=== PATIENT | female | born 1985 | race Caucasian/White ===

== ENCOUNTER 2021-07-20 16:30 | Inpatient (IN) | payer OTHER ==
[~2021-07-20] VITALS: Ht 154.9 cm; Wt 81.6 kg
[2021-07-20] MEDS ORDERED: ONDANSETRON 4 MG/2 ML VIAL IV ONE (17:45)
[2021-07-20] MEDS ORDERED: IV NORMAL SALINE 1000 ML BAG IV ONE (17:45)
[2021-07-20] MEDS ORDERED: ONDANSETRON 4 MG/2 ML VIAL ONE (18:22)
[2021-07-20 18:34] LABS: HEMATOCRIT 41.6 % (31.2-41.9); MEAN CORPUSCULAR HEMOGLOBIN 29.5 uug (24.7-32.8); MEAN CORPUSCULAR VOLUME 87.8 fL (75.5-95.3); PLATELET COUNT (AUTO) 416 K/uL (179-408)
[2021-07-20 18:40] LABS: CARBON DIOXIDE 31 mmol/L (21-32); CHLORIDE 101 mmol/L (98-107); CREATININE 0.8 mg/dL (0.6-1.3); GLUCOSE 119 mg/dL (74-106); POTASSIUM 4.5 mmol/L (3.5-5.1); UREA NITROGEN, BLOOD 9 mg/dL (7-18)
[2021-07-20] MEDS ORDERED: IV NORMAL SALINE 250 ML IV ONE (18:49)
[2021-07-20] MEDS ORDERED: IOHEXOL 300MG/ML 100 ML INFUS..BTL ONE (18:49)
[2021-07-20] MEDS ORDERED: SWABABLE VALVE TRANSFER SET EA MC ONE (18:49)
[2021-07-20 18:53] LABS: ALANINE AMINOTRANSFERASE 62 U/L (14-59); ALKALINE PHOSPHATASE 162 U/L (50-136); ASPARTATE AMINOTRANSFERASE 61 U/L (15-37); BILIRUBIN,DIRECT 0.2 mg/dL (0.0-0.2); BILIRUBIN,TOTAL 0.9 mg/dL (0.2-1.0); LIPASE 102 U/L (73-393); TOTAL PROTEIN, SERUM 9.2 g/dL (6.4-8.2)
--- NOTE | 2021-07-20 19:15 | NUR ---
PT back to ER from [place].
[2021-07-20] MEDS ORDERED: PIPERACILLIN SODIUM/TAZOBACTAM 3.375 G in IV DEXTROSE 5% 50 ML IV ONE (20:15)
[2021-07-20] MEDS ORDERED: PIPERACILLIN/TAZOBACTAM/D5W 50 ML IV ONE (20:23)
[2021-07-20] MEDS ORDERED: HYDROMORPHONE 1 MG/1 ML DISP.SYRIN IV ONE ×2 (20:30→23:15)
--- NOTE | 2021-07-20 20:46 | NUR ---
Dr. Swenson speaking with Dr. Bernard Max of [facility], [place]
[2021-07-20] MEDS ORDERED: HYDROMORPHONE 1 MG/1 ML DISP.SYRIN ONE ×2 (20:57→23:21)
[2021-07-20] MEDS ORDERED: IV D5W-0.45% NS +20 KCL 1,000 ML IV ONE ×2 (22:00→22:03)
[2021-07-21] MEDS ORDERED: HYDROMORPHONE 1 MG/1 ML DISP.SYRIN IV ONE ×5 (02:45→22:45)
[2021-07-21] MEDS ORDERED: ONDANSETRON 4 MG/2 ML VIAL IV ONE ×4 (02:45→18:00)
[2021-07-21] MEDS ORDERED: PIPERACILLIN SODIUM/TAZOBACTAM 3.375 G in IV DEXTROSE 5% 50 ML IV ONE (02:45)
[2021-07-21] MEDS ORDERED: PIPERACILLIN/TAZOBACTAM/D5W 50 ML IV ONE (02:52)
[2021-07-21] MEDS ORDERED: HYDROMORPHONE 1 MG/1 ML DISP.SYRIN ONE ×5 (02:52→22:40)
[2021-07-21] MEDS ORDERED: ONDANSETRON 4 MG/2 ML VIAL ONE ×4 (02:52→18:13)
--- NOTE | 2021-07-21 11:11 | NUR ---
pt ambulated to bathroom with so assisstance.
--- NOTE | 2021-07-21 15:00 | NUR ---
pt's boy friend at bedside. he says that he talked to the surgeon and the surgeon said that there will be no surgery today. pt erquesting something to eat. er md at bedside
--- NOTE | 2021-07-21 19:10 | NUR ---
Recieved michelle report from [facility]. Pt is in holding pattern waiting for a room assigment at [place]. Nothing is pending of pt. VSS, PE WNL pt only complaining of moderate to severe pain and is being medicated with dilaudid 1mg. Pt has good color and appearance, no s/sx of distress present.
--- NOTE | 2021-07-21 19:50 | NUR ---
119/78, 78bpm NSR, 100% RA, 16rpm, 6/10 pain
--- NOTE | 2021-07-21 23:10 | NUR ---
112/71, 77bpm, 94% RA, 16rpm, 8/10 pain. Pt's pain treated with 1mg dilaudid per EDMD.
--- NOTE | 2021-07-21 23:47 | NUR ---
talking to [facility] now. Transfer center said they are completely full at all [facility] locations but are trying to move stuff around and make room for the pt. Transfer rep said that most likely it will be after 9am tomorrow morning after dcing some pts in the morning they should have a bed ready for her by then.
--- NOTE | 2021-07-22 03:28 | NUR ---
Pt complaining of 8/10 abd pain. EDMD informed,
[2021-07-22] MEDS ORDERED: HYDROMORPHONE 1 MG/1 ML DISP.SYRIN IV ONE ×2 (03:30→11:45)
[2021-07-22] MEDS ORDERED: IV D5W-0.45% NS 1000 ML BAG IV ONE (03:30)
[2021-07-22] MEDS ORDERED: ONDANSETRON 4 MG/2 ML VIAL IV ONE ×3 (03:30→11:45)
[2021-07-22] MEDS ORDERED: HYDROMORPHONE 1 MG/1 ML DISP.SYRIN ONE ×2 (04:17→11:37)
[2021-07-22] MEDS ORDERED: PIPERACILLIN/TAZOBACTAM/D5W 50 ML IV ONE (04:18)
--- NOTE | 2021-07-22 07:12 | NUR ---
Checked in on pt. Pt was sleeping soundly with audible snoring. IV fluids flowing at approx 100ml/hr per EDMD. Pt states 7/10 pain but refused pain meds and said she can hold off for the time being. I told her the morning RN will be arriving soon and if she feels the need to medicate for pain to just notify the AMRN. She agreed. Pt asked if there is anything I can get for her before I leave, she said no thank you and was greatful for the care she recieved through out the night. Pt updated on [facility] and was told that the transfer center said she is at the top of the list to be assigned a room first before anyone else and that hopefully between 9am and noon she should be placed and transfered.
--- NOTE | 2021-07-22 07:30 | NUR ---
Software Test Developer assumes care: Patient is AOx4, calm & breathing easily, afebrile, for transfer to [facility], pending available nurse & bed@ [facility], NAD, denies nausea or vomiting or diarrhea.
--- NOTE | 2021-07-22 08:36 | NUR ---
primary surgeon- Dr. Vinod Butler [phone]
[2021-07-22 08:51] LABS: HEMATOCRIT 35.7 % (31.2-41.9); MEAN CORPUSCULAR HEMOGLOBIN 29.3 uug (24.7-32.8); PLATELET COUNT (AUTO) 385 K/uL (179-408)
[2021-07-22] MEDS ORDERED: MORPHINE SULFATE 4 MG/1 ML DISP.SYRIN IV ONE (09:00)
[2021-07-22] MEDS ORDERED: IV NORMAL SALINE 250 ML IV ONE (09:07)
[2021-07-22] MEDS ORDERED: SWABABLE VALVE TRANSFER SET EA MC ONE (09:07)
[2021-07-22] MEDS ORDERED: IOHEXOL 300MG/ML 100 ML INFUS..BTL ONE (09:07)
[2021-07-22] MEDS ORDERED: MORPHINE SULFATE 4 MG/1 ML DISP.SYRIN ONE (09:09)
[2021-07-22] MEDS ORDERED: ONDANSETRON 4 MG/2 ML VIAL ONE ×3 (09:10→14:54)
[2021-07-22 09:16] LABS: CREATININE 0.9 mg/dL (0.6-1.3); POTASSIUM 4.6 mmol/L (3.5-5.1)
[2021-07-22 09:21] LABS: BILIRUBIN,DIRECT 0.2 mg/dL (0.0-0.2); BILIRUBIN,TOTAL 1.1 mg/dL (0.2-1.0); TOTAL PROTEIN, SERUM 8.1 g/dL (6.4-8.2)
--- NOTE | 2021-07-22 10:32 | NUR ---
1026am: Updated labs,imaging and notes were faxed to , pending confirmation receipt from hospital's fax machine.
--- NOTE | 2021-07-22 11:26 | NUR ---
I faxed documents 2x but "ERROR/failed" message received. [facility] staff Lisbeth gave alternative fax number. Faxed documents again for third time.
--- NOTE | 2021-07-22 11:38 | NUR ---
VERBAL ORDER FROM DR MARY BIGGSUDID 1MG AND ZOFRAN 4MG IV FOR ABD PAIN
[2021-07-22] MEDS ORDERED: MORPHINE SULFATE 2 MG/1 ML DISP.SYRIN ONE (14:54)
[2021-07-22] MEDS: ONDANSETRON 4 MG/2 ML VIAL IV PRN (14:55)
[2021-07-22] MEDS: MORPHINE SULFATE 2 MG/1 ML DISP.SYRIN IV PRN ×2 (14:57→19:13)
--- NOTE | 2021-07-22 16:29 | NUR ---
Patient and spouse are updated about : plan of care. Patient and spouse are agreeable with the admission to our hospital. NPO maintained.
[2021-07-22] MEDS ORDERED: PIPERACILLIN SODIUM/TAZOBACTAM 4.5 G in IV DEXTROSE 5% 50 ML IV SCH (17:00)
--- NOTE | 2021-07-22 17:23 | NUR ---
CD copies of all her imaging were sent to 3rd floor medical-surgical floor. Room 325 was given, pending accepting [email or web address] time.
[2021-07-22] MEDS: PIPERACILLIN SODIUM/TAZOBACTAM 3.375 G in IV DEXTROSE 5% 100 ML IV SCH (19:11)
[2021-07-22] MEDS: IV 1/2NS 1000 ML 1,000 ML IV PRN (20:33)
--- NOTE | 2021-07-22 20:40 | NUR ---
PATIENT ALERT ORIENTED, NO SOB NO CHEST PAIN, CONT ON PAIN MANAGEMENT DUE ABDOMINAL PAIN, REMIND PAIN THAT ON MIDNIGHT, SHE NEEDS TO BE NPO. PATIENT HAD SOFT MEDIUM AMOUNT BOWEL MOVEMENT, PASSING GAS ALSO. PATIENT VOIDING WELL, CONT TO MONITOR.
[2021-07-22 21:10] VITALS: BP 99/61
--- NOTE | 2021-07-22 22:10 | NUR ---
NOTIFY DR. ROCHELLE NAVARRETE PATIENT REQUEST FOR DILAUDID FOR SEVERE PAIN, AND THE NEED FOR MIDLINE DUE TO HARD STICK, PATIENT HAS NO NEW ORDER.
--- NOTE | 2021-07-22 23:00 | NUR ---
RN DRUG AND ALCOHOL COUNSELLOR ABLE TO INSERT PERIPHERAL IV TOLERATE WELL.
[2021-07-23] MEDS: MORPHINE SULFATE 2 MG/1 ML DISP.SYRIN IV PRN ×5 (00:10→21:16)
[2021-07-23] MEDS: ONDANSETRON 4 MG/2 ML VIAL IV PRN (00:20)
[2021-07-23] MEDS: PIPERACILLIN SODIUM/TAZOBACTAM 3.375 G in IV DEXTROSE 5% 100 ML IV SCH ×3 (02:51→17:56)
[2021-07-23 04:45] VITALS: BP 110/67
--- NOTE | 2021-07-23 05:58 | NUR ---
PATIENT ALERT ORIENTED, ASLEEP BUT AROUSABLE, CONT ON PAIN MANAGEMENT DUE TO ABDOMINAL PAIN, REMAINS NPO FOR PROCEDURE, INTERVENTIONAL RADIOLOGY TO PUT DRAINAGE TUBE. CONT TO MONITOR.
[2021-07-23 06:11] LABS: CREATININE 0.8 mg/dL (0.6-1.3); MAGNESIUM 1.9 mg/dL (1.8-2.4); PHOSPHOROUS 3.7 mg/dL (2.5-4.9); POTASSIUM 3.9 mmol/L (3.5-5.1)
[2021-07-23 06:17] LABS: HEMATOCRIT 33.7 % (31.2-41.9); MEAN CORPUSCULAR HEMOGLOBIN 29.2 uug (24.7-32.8); MEAN CORPUSCULAR VOLUME 87.2 fL (75.5-95.3); PLATELET COUNT (AUTO) 405 K/uL (179-408)
--- NOTE | 2021-07-23 07:51 | NUR ---
IN BED COMFORTABLE SLEEPING WITH IVF ORDERED WITH NO S/S OF INFILTERATION ON SITE REMAINS NPO ORDERED FOR PLANNED PROCEDURE AT [facility] TODAY CALL LIGHTS AND PERSONAL BELONGINGS ARE WITHIN EASY REACH WILL CONTINUE TO OBSERVE.
[2021-07-23] MEDS: PANTOPRAZOLE SODIUM 40 MG VIAL IV SCH (08:22)
--- NOTE | 2021-07-23 09:00 | NUR ---
PATIENT FED BREAKFAST BECAUSE THE ART OBJECTS REPAIRER PATIENT TO HAVE BREAKFAST AND PER DR BRYANT HER PROCEDURE WILL BE DONE HERE AT [facility] AT 1500
[2021-07-23 12:00] VITALS: BP 108/70
--- NOTE | 2021-07-23 13:00 | NUR ---
CONCRETE PAVEMENT INSTALLER LARRY HERE AND STATED PATIENTS PROCEDURE TO INSERT A TUBE FOR THE BILOMA HAS BEEN CANCELLED DUE TO INADEQUATE STAFFING WILL BE RESCHEDULED TOMORROW AND WILL NOTIFY US OF THE TIME.PATIENT NOTIFIED AND SHE IS VERY UPSET THAT THE PROCEDURE HAS BEEN CHANGED SO MANY TIMES SHE PREVIOUSLY WAS SUPPOSED TO HAVE IT AT [address]PATIENT REASSURED THAT SHE WILL GET IT DONE SOON IT IS POSSIBLE CALMED DOWN AFTER REASSURANCE.
[2021-07-23 16:10] VITALS: BP 112/66
--- NOTE | 2021-07-23 19:30 | NUR ---
Received patient lying in bed. AAOX4. In no apparent distress. Denies any SOB. COmplain of pain on abdominal area, stated pain is constant. Will provide Morphine once due. IV site on right FA intact and patent. IVF infusing. Needs assessed and attended to. Safety measure initiated and call light within reached.
[2021-07-23 20:00] VITALS: BP 112/67
[2021-07-24] MEDS: PIPERACILLIN SODIUM/TAZOBACTAM 3.375 G in IV DEXTROSE 5% 100 ML IV SCH ×3 (01:06→18:10)
[2021-07-24] MEDS: MORPHINE SULFATE 2 MG/1 ML DISP.SYRIN IV PRN ×5 (01:06→21:30)
[2021-07-24 04:00] VITALS: BP 116/81
[2021-07-24] MEDS: IV 1/2NS 1000 ML 1,000 ML IV PRN (04:05)
--- NOTE | 2021-07-24 06:19 | NUR ---
Remains AAOX4. In no acute distress. Denies any SOB. Morphine 2mg via IV every 3 hours PRN given for complain of abdominal pain and with helped. IVF infusing. No side effect noted from IV antibiotic. Needs attended to and met. NPO status. Safety measure maintained and call light within reached.
[2021-07-24 06:41] LABS: HEMATOCRIT 33.1 % (31.2-41.9); MEAN CORPUSCULAR HEMOGLOBIN 29.8 uug (24.7-32.8); MEAN CORPUSCULAR VOLUME 87.4 fL (75.5-95.3); PLATELET COUNT (AUTO) 384 K/uL (179-408)
[2021-07-24 07:25] LABS: BILIRUBIN,TOTAL 0.7 mg/dL (0.2-1.0); CREATININE 0.9 mg/dL (0.6-1.3); MAGNESIUM 2.4 mg/dL (1.8-2.4); PHOSPHOROUS 4.3 mg/dL (2.5-4.9); POTASSIUM 4.2 mmol/L (3.5-5.1); TOTAL PROTEIN, SERUM 7.2 g/dL (6.4-8.2)
[2021-07-24] MEDS: PANTOPRAZOLE SODIUM 40 MG VIAL IV SCH (08:36)
[2021-07-24] MEDS ORDERED: MIDAZOLAM HCL 10 MG/2 ML VIAL IV PRN (09:30)
[2021-07-24] MEDS ORDERED: NALOXONE 2 MG/2 ML SYRINGE IV PRN (09:30)
[2021-07-24] MEDS ORDERED: FENTANYL CITRATE 250 MCG/5 ML AMPUL IV PRN (09:30)
[2021-07-24] MEDS ORDERED: LIDOCAINE HCL 1% 20 ML VIAL ONE (11:55)
[2021-07-24 11:56] VITALS: BP 110/74
--- NOTE | 2021-07-24 13:30 | NUR ---
Patient transported to radiology department for procedure.
--- NOTE | 2021-07-24 15:50 | NUR ---
Received patient back from procedure. On 1L O2 via NC. Patient with drainage on right abdomen. Vital signs WNL. Will continue to monitor.
[2021-07-24 16:00] VITALS: BP 126/90
--- NOTE | 2021-07-24 19:40 | NUR ---
Patient resting in bed. AOx4. On 1L O2 via NC. Patient complained of pain, Morphine IV given. No signs of acute distress. Compliant with medications and care. Needs anticipated and met. Will endorse to incoming shift for continuity of care.
[2021-07-24 20:00] VITALS: BP 114/78
[2021-07-24] MEDS ORDERED: KETOROLAC TROMETHAMINE 15 MG INJ IM PRN (20:00)
--- NOTE | 2021-07-24 20:30 | NUR ---
Pt has temp of 99.7. Cooling measures initiated.
[2021-07-24] MEDS ORDERED: KETOROLAC TROMETHAMINE 15 MG INJ IVP PRN (20:45)
--- NOTE | 2021-07-24 21:50 | NUR ---
Care transferred to [facility]
[2021-07-24] MEDS ORDERED: MORPHINE SULFATE 2 MG/1 ML DISP.SYRIN ONE (23:49)
[2021-07-25] MEDS: MORPHINE SULFATE 2 MG/1 ML DISP.SYRIN IV PRN ×6 (00:12→17:05)
--- NOTE | 2021-07-25 01:29 | NUR ---
Telephone call from WANDY Loya from [facility] and updated on patient current condition. Per Shalini there is still no bed available for pt to transfer to [facility]. Will inform CM in AM.
[2021-07-25] MEDS: PIPERACILLIN SODIUM/TAZOBACTAM 3.375 G in IV DEXTROSE 5% 100 ML IV SCH ×2 (02:35→10:48)
[2021-07-25 04:00] VITALS: BP 110/71
--- NOTE | 2021-07-25 06:06 | NUR ---
Patient remains AAOx4. In no acute distress. Denies any SOB. Morphine 2mg every 2 hours PRN given for pain and with helped. Drain on right abdominal area intact and draining dark brown discharge approx. 300ml for the shift. IV site on right FA intact and patent. IVF infusing. No adverse effect noted from IV antibiotic. Needs attended to and met. Safety measure maintained and call briceño within reached.
[2021-07-25 07:01] LABS: HEMATOCRIT 33.8 % (31.2-41.9); MEAN CORPUSCULAR HEMOGLOBIN 29.1 uug (24.7-32.8); MEAN CORPUSCULAR VOLUME 87.3 fL (75.5-95.3); PLATELET COUNT (AUTO) 376 K/uL (179-408)
--- NOTE | 2021-07-25 07:30 | NUR ---
received patient laying in bed and in no acute distress. patient with drain to left side with current drainage at 300. Drain in place and patent, patient states she has a pain and requesting pain medication, non-pharmacologic intervention not effective. currently with iv site to right hand in place and paten, iv fluids flowing without complication. reminded patient to use call light for assistance, call light within reach, side rails up x2. v/s wnl at this moment.
[2021-07-25 07:44] LABS: CREATININE 0.9 mg/dL (0.6-1.3); TOTAL PROTEIN, SERUM 7.4 g/dL (6.4-8.2)
[2021-07-25] MEDS: PANTOPRAZOLE SODIUM 40 MG VIAL IV SCH (08:36)
[2021-07-25] MEDS: IV 1/2NS 1000 ML 1,000 ML IV PRN (08:42)
[2021-07-25] MEDS ORDERED: METR500T PO (10:51)
[2021-07-25] MEDS ORDERED: CIPR-262 PO (10:51)
[2021-07-25] MEDS ORDERED: OXYC-133 PO (10:51)
[2021-07-25 12:00] VITALS: BP 113/61
--- NOTE | 2021-07-25 12:00 | NUR ---
new discharge orders, per Dr. lopez patient will be discharged later on today and patient is to f/u with surgeon. patient is aware.
[2021-07-25 16:00] VITALS: BP 124/66
--- NOTE | 2021-07-25 16:00 | NUR ---
patient requesting all medical records, forms signed and sent to medical records.
--- NOTE | 2021-07-25 17:00 | NUR ---
discharge orders reviewed with patient, reminded patient to f/u with surgeon regarding drain in place, per patient she is making a f/u appointment soon, patient was given 2 extra drainage systems, explained how to empty and replace system both patient and boyfriend state understanding. discharge instructions given to patient states understanding, inventory list verified all belongings present. reminded patient to go to nearest er or call 911 if symptoms worsen. per patient can you give me morphine before i leave, reminded patient she would have to wait 45 minutes before being discharge, patient states that is ok.
--- NOTE | 2021-07-25 18:00 | NUR ---
IV site discontinued dressing applied, minimal bleeding noted. patient states she is ready to leave. patient was assisted onto w/c with all belonging, upon discharge patient with v/s wnl, pain 3/10. assisted downstairs safely onto vehicle.
[2021-07-26] MEDS ORDERED: PANTOPRAZOLE SODIUM 40 MG TABLET.DR PO SCH (07:00)
== END 2021-07-25 18:05 | disposition home or self-care (01) | DRG 395 ==
LOC: ER 16:33 → MEDSURG3 07-22 18:13
PROVIDERS: ATTEND Internal Medicine
PROC: 0W9G30Z Drainage of Peritoneal Cavity with Drainage Device, Percutaneous Approach (ICD-10-PCS; principal; 2021-07-22)
DX: K91.89 Other postprocedural complications and disorders of digestive system (principal); K83.8 Other specified diseases of biliary tract; Y83.8 Other surgical procedures as the cause of abnormal reaction of the patient, or of later complication, without mention of misadventure at the time of the procedure; Y73.8 Miscellaneous gastroenterology and urology devices associated with adverse incidents, not elsewhere classified; Y92.009 Unspecified place in unspecified non-institutional (private) residence as the place of occurrence of the external cause; Z20.822 Contact with and (suspected) exposure to COVID-19; Z90.49 Acquired absence of other specified parts of digestive tract
CPT/HCPCS: 36415; 71045; 74150; 83605; 83690; 83735; 84100; 85025; 85610; 87040; A4663; C9113; G0378; J1170; J1885; J2250; J2270; J2405; J2543; J3010; J3490; J7030; J7050; J7060; Q9967